=== PATIENT | male | born 1990 | race Two or more races ===

== ENCOUNTER 2021-05-01 11:41 | Emergency (ER) | payer OTHER ==
[2021-05-01 12:58] LABS: BASOPHIL 0.4 % (0-2); EOSINOPHIL 0.8 % (0-5); HCT 49.1 % (42.0-52.0); HGB 17.2 g/dl (13.2-18.0); LYMPHOCYTE 21.8 % (15-48); MCH 29.8 pg (25.0-31.0); MCV 85.1 fL (78.0-100.0); MONOCYTE 7.7 % (0-12); MPV 10.2 fL (6.0-9.5); NRBC 0; PLT 308 K/uL (150-400); RBC 5.77 M/uL (4.70-6.00); RDW 12.5 % (11.5-14.0); WBC 7.3 K/uL (4.0-10.5)
[2021-05-01 13:19] LABS: BILIRUBIN - TOTAL 0.9 mg/dL (0.2-1.0); BUN/CREAT RATIO (CALC) 12.8 RATIO; CREATININE 2.03 mg/dL (0.67-1.17); POTASSIUM 4.3 mmol/L (3.5-5.1)
== END 2021-05-01 14:55 | disposition home or self-care (01) ==
LOC: FER 11:41
PROVIDERS: Emergency Medicine
DX: T67.5XXA Heat exhaustion, unspecified, initial encounter (principal); M62.82 Rhabdomyolysis; N17.9 Acute kidney failure, unspecified; X30.XXXA Exposure to excessive natural heat, initial encounter
CPT/HCPCS: 36415; 80053; 82550; 85025; 99284; J7030